=== PATIENT | female | born 1940 | race Caucasian/White ===

== ENCOUNTER 2022-04-23 09:56 | Inpatient (IN) | payer OTHER, SELFPAY ==
[2022-04-20 08:49] VITALS: BMI 25.9
[2022-04-23] VITALS (10 sets, daily range): BP systolic 118–166; BP diastolic 67–90; PULSE 64–110; RESP 15–27; TEMP 35.9–37.4; O2SAT 90–97; BMI 25.9
[2022-04-23] MEDS: LACTATED RINGERS 1,000 ML 42 ML IV ×2 (11:13→12:56)
[2022-04-23 11:26] LABS: COVID19 -Nasal RAPID Negative (Negative)
--- NOTE | 2022-04-23 11:42 | PM.PREOP ---
Pre-operative Note COVID-19 COVID-19 status: Negative Result date/Date tested (Pos, Neg/Pending): 04/22/22 Criteria for continued procedure: Expected advancement of disease process, Possibility delay results in more complex future surgery or treatment, Increased loss of function, Continuing or worsening of significant or severe pain, Deterioration of the patient's condition or overall health and Delay expected to result in less-positive ultimate med/surg outcome Interval Note History & Physical reviewed/Exam performed by Physician: Yes Changes to H&P: No
[2022-04-23] MEDS: CEFAZOLIN 2 GM/100 ML PREMIX 100 ML IV ×2 (12:20→19:40)
--- NOTE | 2022-04-23 12:53 | SUR.OPER ---
Prone on spine table, head in foam head support, padded chest and pelvic supports, gel pad at knees, lower legs supported by pillows; nipples, genitalia and toes free of pressure, arms secured on foam padded arm boards at <90 degrees abduction. Tape over blanket at thigh secured to table. Pt positioned per direction and supervision of Dr Dallas.
[2022-04-23] MEDS: BUPIVACAINE 0.25% (PF) VIAL 30 ML SUBCUT (13:48)
[2022-04-23] MEDS: BUPIVACAINE LIPOSOME 266 MG/20 ML VIAL INJ (13:51)
[2022-04-23] MEDS: EPINEPHrine 1 MG/ML 0.15 MG INJ (13:52)
--- NOTE | 2022-04-23 15:19 | DI.RAD.S_ITS ---
PROCEDURE: XR LUMBAR SPINE 2-3V INDICATIONS: L3-4, L4-5 TLIF TECHNIQUE: 3 views of the lumbar spine were acquired. COMPARISON: None. FINDINGS: Intraoperative fluoroscopic views of pedicular screw and carey fixation of L3, L4, and L5. IMPRESSION: Intraoperative fluoroscopic views. Dictated by: Jl Tinsley M.D. on 04/23/2022 at 15:06 Approved by: Jl Tinsley M.D. on 04/23/2022 at 15:06
--- NOTE | 2022-04-23 15:21 | P.OP_ITS ---
Operative Date/Time/Diagnoses Date of procedure: 04/23/22 Time of procedure: 12:30 Pre-op diagnosis: 1. 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 Lumbar scoliosis Post-op diagnosis: same Procedure & Clinicians Procedure: 1. L3-4, L4-5 Postero-lateral and posterior interbody fusion 2. L3-4, L4-5 interbody cage placement. 3. L3-4, L4-5 decompressive laminectomy with bilateral facetecomies 4. L3-4, L4-5 Posterior segmental instrumentation 5. [place] of bone marrow from iliac crest 6. Utilization of microsurgical technique and operating microscope 7. Utilization of robotic assisted navitation Same procedure as scheduled: Yes Indications: Patient has been having chronic back pain and worsening lumbar radiculopathy. Patient failed multiple conservative management with worsening pain weakness and numbness in her lower extremity. Patient has been having difficulty performing activity of daily living. After discussing risks benefits of treatment options, patient elected proceed with surgery. Surgeon: Lizbeth Dallas Licensed Optician: Krystyna Cerrato Click Yes if Unassisted: No Anesthesia Type: General Operative Notes Closure Type: primary Specimen(s): none sent Prosthetic devices, grafts, tissues, transplants, or devices: Globus CREO MIS screws, Rise cages Applied: catheter Estimated Blood Loss (mL): 100 Blood products transfused: none Procedure in detail: Patient was seen in the preoperative area. Risks and benefits of the surgery was discussed with the patient. Informed consent was obtained from the patient and placed in the chart. Surgical site was marked. Patient was taken to the o perative room. General anesthesia was administered. Prophylactic antibiotic was given to the patient less than 30 min before the incision was made. Patient was placed into a prone position on the Con table. Patient's back was then prepped and draped in the sterile fashion. Time-out was performed at this time. After patient was prepped and draped, patient's PSIS was palpated and marked bilaterally. Small 1 cm incision was made over the PSIS for placement of the reference probes. Two trocar was placed into the PSIS 1 on each side. The reference probe was attached to the trocar of the reference apparatus. At this time the C-arm imaging was used to confirm AP and lateral of L3, L4-L5 vertebrae and merged the C-arm imaging using the MaxCDN robotic navigation system with the CT of the lumbar spine. After successful merging was completed and confirmed, skin marker was used to alberto out the skin incision using the MaxCDN robotic arm. Bilateral incision was made at this time. Pre templated trajectory was used and guided using the MaxCDN robotic navigation system for bilateral L3 L4, L5 pedicle screw placement. This was done by using the robotic arm to guide the high-speed bur to make a cortical entry point. Next a drill was placed also using the robotic arm and guided using the navigation system drilling partially through bilateral L3, L4, L5 pedicles. Next L3, L4, L5 pedicle screws it was pre templated and measured was placed onto the power school boat driver and inserted into the pedicles bilaterally. After all 6 screws were placed C-arm imaging was taken of both AP and lateral to confirm the placement. Excellent placement of the screws were confirmed and a matched precisely with the pre planned screw placement using the navigation system. MARs retractor was inserted using The [employer]own[employer] guidence. Globus MARS retractors was placed inside the incision and docked onto the L3, L4 lamina. Using microsurgical technique and operating microscope, a L3, L4 laminectomy and L3-4, L4-5 facetectomy was performed using a Kerrison rongeur. Patient was found have severe lateral recess and neural foramen stenosis which was fully decompressed after the laminectomy facetectomy. More than 75% of the facets were removed during the process of decompression rendering L3-4, L4-5 level grossly unstable and required a fusion procedure at the same time. The disc space at L3-4, L4-5 was identified, and a total diskectomy was performed at L3- 4, L4-5 level. The endplates were decorticated using a rasp and shaver. The total diskectomy and decortication was performed at L3-4, L4-5 level in order to to accomplish a L3-4, L4-5 fusion. The local bone from the laminectomy and facetectomy was saved for local bone grafting. After the total diskectomy and decortication was completed, Trifecta bone graft material was combined with local bone that was harvested earlier. At this time, a separate skin is incision was made over the iliac crest. A Jamshidi needle was inserted into the iliac crest through a separate skin incision. 5 cc of bone marrow aspiration was obtained through the separate skin incision using a Jamshidi needle from the iliac crest. The bone marrow aspiration was combined with local bone and the Trifecta bone grafting material. The bone grafting material was placed into the L3-4, L4-5 interbody space along with expandable cages. One cage each was inserted into the L3-4 L4-5 interbody space along with bone graft material. The cage was expanded to its maximum height using the torque limiting screwdriver. The disc preparation as well as the cage insertion were also performed under navigation guidance. After the cage was placed, AP and lateral C-arm imaging was taken to confirm placement of the cage and excellent position was confirmed. Globus MARS retractor was inserted and docked onto the L3-4, L4-5 posterolateral gutter on the right side. Using the power drill, posterior-lateral decortication was performed at L3-4, L4-5 level until bleeding cortical bone was identified. The remaining bone grafting material was placed into the L3-4, L4-5 posterior lateral gutter he order to accomplish posterolateral fusion at the L3-4, L4-5 level. At this time the tulips were attached to the L3, L4-L5 pedicle screw shanks. After measuring the length of the rods, they were inserted into the tulips of the pedicle screws and locked in place using locking caps and torque limiting screwdriver bilaterally. Total 6 caps and 2 titanium rods was used in order to complete the posterior instrumentation construct. After all the hardware was placed, and confirmed with AP and lateral C-arm imaging, the wound was then irrigated with sterile normal saline and packed with Ray-Denis gauze for 3 min to accomplish hemostasis. After the gauze was removed the deep fascia was closed with #1 Vicryl suture. The subcutaneous layer was closed with 2-0 Vicryl. The skin was closed with skin dominic. Patient tolerated the procedure well. There were no complications. Neuro monitoring system was used to monitor patient's neurologic status throughout entire procedure. There was no disturbance of the neural monitoring signals throughout the case. Complications: none Post-operative Condition: stable Disposition: PACU Plan for aftercare: Admit to inpatient hospital
[2022-04-23] MEDS: hydrOXYzine 50 MG/ML INJ 25 MG IM (15:33)
[2022-04-23] MEDS: HYDROMORPHONE 2 MG INJ IV (15:39)
[2022-04-23] MEDS: LORazepam 2 MG/ML INJ 0.25 MG IV (15:55)
--- NOTE | 2022-04-23 16:18 | SUR.PHASEI ---
Report called to Latasha
--- NOTE | 2022-04-23 16:43 | SUR.PHASEI ---
Patient transferred to the floor with her CPAP and glasses. Report given to Latasha. PAIGE patent. Back dressing CDI. Ice in place. Mira patent.
[2022-04-23] MEDS: SODIUM CHLORIDE 0.9% 1,000 ML 100 ML IV (16:52)
[2022-04-23] MEDS: HYDROMORPHONE 0.5 MG INJ IV (17:44)
[2022-04-23] MEDS: OXYCODONE IR 5 MG TABLET 10 MG PO ×2 (19:53→23:20)
[2022-04-23] MEDS: TIZANIDINE 4 MG TABLET 2 MG PO (19:54)
[2022-04-23] MEDS: DOCUSATE 100 MG CAPSULE PO (20:59)
[2022-04-23] MEDS: SENNOSIDES 8.6 MG TABLET 17.2 MG PO (20:59)
[2022-04-23] MEDS: DULOXETINE 30 MG CAPSULE PO (20:59)
[2022-04-24] VITALS (7 sets, daily range): BP systolic 90–136; BP diastolic 47–78; PULSE 64–81; RESP 15–18; TEMP 35.8–37.1; O2SAT 91–98
[2022-04-24] MEDS: HYDROMORPHONE 0.5 MG INJ IV (01:57)
[2022-04-24] MEDS: SODIUM CHLORIDE 0.9% 1,000 ML 100 ML IV (01:58)
[2022-04-24] MEDS: CEFAZOLIN 2 GM/100 ML PREMIX 100 ML IV (04:28)
[2022-04-24] MEDS: PANTOPRAZOLE DR 40 MG TABLET PO (05:56)
[2022-04-24] MEDS: OXYCODONE IR 5 MG TABLET 10 MG PO ×4 (05:59→17:52)
[2022-04-24] MEDS: hydrOXYzine pamoate 25 MG CAPSULE PO ×2 (05:59→13:04)
--- NOTE | 2022-04-24 07:32 | PM.PNPO.1 ---
Subjective Subjective Date Patient Seen: 04/24/22 Time Patient Seen: 07:32 Interval history: Back pain is moderate. Denies fever or chills. No nausea or vomiting. Exam Vital Signs (past 8 hours): - 04/24/22 00:43 04/24/22 02:00 Temperature 98.7 F Pulse Rate 78 Respiratory Rate 18 18 Blood Pressure 123/74 136/78 Pulse Oximetry 98 94 Oxygen Flow Rate 0.5 0.5 Oxygen Delivery Method Nasal Cannula,CPAP Oxygen Flow Rate 0.5 Narrative Exam Narrative: 81-year-old female resting comfortably in bed no apparent distress. Motor functions intact bilateral lower extremities. Sensation grossly intact to light touch bilateral lower extremities. Const General: cooperative and comfortable Nutritional Appearance: average body habitus Orientation: alert Resp Effort & Inspection: normal respiratory effort and able to speak in complete sentences Objective Labs 04/24/22 04:55 Labs: Laboratory Results - last 24 hr 04/23/22 04/24/22 10:22 04:55 Hgb 9.0 L Hct 31.0 L SARS-CoV-2 (PCR) Negative [facility] Medical History Arthritis Carotid artery stenosis Cluster headache COVID-19 virus infection (09/2021) Disc degeneration, lumbar Dysphagia Fibromyalgia GERD (gastroesophageal reflux disease) Glaucoma Greater trochanteric bursitis of both hips Ground-level fall History of bronchitis History of esophageal dilatation (11/24/20) History of lupus HTN (hypertension) Legally blind Lumbar stenosis with neurogenic claudication Macular degeneration Memory difficulties Murmur HUSSAIN treated with BiPAP Osteoarthritis Pure hypercholesterolemia Raynaud's phenomenon RLS (restless legs syndrome) Statin intolerance Syncope Systemic lupus erythematosus Thalassemia minor Trigeminal nerve disorder Vision loss of left eye Surgical History Hx of bilateral cataract extraction (~2015) Hx of tonsillectomy (1950) Social History household members: none Smoking Status: Former smoker alcohol intake: current Assessment & Plan Post-op Postoperative Procedures: Procedures Operation Date: 04/23/22 11:45 Actual Procedure Side Surgeon p L3-4, L4-5 TLIF w. posterior instrumentation - Robot Not Applicable Lizbeth Dallas MD Postoperative day: 1 Postoperative status narrative: Stable status post lumbar fusion Postoperative plan: routine post-op care Postoperative plan narrative: Weight-bearing as tolerated, limit bending, twisting, lifting Multimodal pain management Discharge likely home in 1-2 days Quality VTE Deep Vein Thrombosis/Pulmonary Embolism Present on Admission: No
[2022-04-24] MEDS: AMLODIPINE 5 MG TABLET PO ×2 (08:55→20:35)
[2022-04-24] MEDS: hydroCHLOROthiazide 25 MG TABLET 12.5 MG PO (08:56)
[2022-04-24] MEDS: ACETAMINOPHEN 325 MG TABLET 650 MG PO ×2 (08:56→17:52)
[2022-04-24] MEDS: DOCUSATE 100 MG CAPSULE PO ×2 (08:57→20:35)
[2022-04-24] MEDS: TIZANIDINE 4 MG TABLET 2 MG PO ×2 (08:57→17:53)
[2022-04-24] MEDS: DULOXETINE 30 MG CAPSULE PO ×2 (08:57→20:35)
--- NOTE | 2022-04-24 11:04 | PT.IIE ---
Current Diagnoses Spondylolisthesis, lumbar region (04/23/22) Spinal stenosis, lumbar region with neurogenic claudication (04/23/22) Surgery Performed Operation Date: 04/23/22 11:45 Actual Procedures p L3-4, L4-5 TLIF w. posterior instrumentation - Robot(Not Applicable) - Lizbeth Dallas MD Surgical History (Last Reviewed 04/24/22 @ 07:33 by Ranjeet Carpenter PA-C) Hx of bilateral cataract extraction (~2015) Hx of tonsillectomy (1950) Medical History (Last Reviewed 04/24/22 @ 07:33 by Ranjeet Carpenter PA-C) Arthritis Carotid artery stenosis Cluster headache COVID-19 virus infection (09/2021) Disc degeneration, lumbar Dysphagia Fibromyalgia GERD (gastroesophageal reflux disease) Glaucoma Greater trochanteric bursitis of both hips Ground-level fall History of bronchitis History of esophageal dilatation (11/24/20) History of lupus HTN (hypertension) Legally blind Lumbar stenosis with neurogenic claudication Macular degeneration Memory difficulties Murmur HUSSAIN treated with BiPAP Osteoarthritis Pure hypercholesterolemia Raynaud's phenomenon RLS (restless legs syndrome) Statin intolerance Syncope Systemic lupus erythematosus Thalassemia minor Trigeminal nerve disorder Vision loss of left eye Physical Therapy Inpatient Evaluation/Re-Eval M1 PT/OT-IP Prior Functional Status Start: 04/24/22 08:58 Freq: NEEDED Status: Active Protocol: Document 04/24/22 10:26 AMB (Rec: 04/24/22 11:03 AMB [id number]) Medical Review Prior Functional Status Medical History Reviewed Yes Mobility and Gait Pt states she is legally blind , has been having a lot of pain over the past few months and that has led to a 20# weight loss since February as she has been having a lot more difficulty. Was using a 4WW. 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 M2 PT-IP Current Condition Start: 04/24/22 08:58 Freq: NEEDED Status: Active Protocol: Document 04/24/22 10:26 AMB (Rec: 04/24/22 11:03 AMB [id number]) Physical Therapy Current Condition Current Condition Evaluation Date 04/24/22 Treatment Diagnosis L3-4,4-5 fusion. Pain, difficulty walking Onset Date 04/23/22 M3 PT-IP Subjective Start: 04/24/22 08:58 Freq: NEEDED Status: Active Protocol: Document 04/24/22 10:26 AMB (Rec: 04/24/22 11:03 AMB [id number]) Subjective Physical Therapy Visit Type Type Initial Evaluation Visit Start Time 09:45 Visit Stop Time 10:15 Total Visit Minutes 30 Physical Therapy Visit Comments Patient Comments Pt is having leg spasms 7/10 Therapy Pain Assessment Pain When Pain Assessed At Rest Location Lower Back Intensity 7 Scale Used Numeric (0 - 10) Description Cramping,Shooting Pain Behaviors Calling Out,Facial Grimacing, Wincing Pain Management Techniques Re-positioning,Timing of Activity with Medications M4 PT-IP Mobility and Gait Start: 04/24/22 08:58 Freq: NEEDED Status: Active Protocol: Document 04/24/22 10:26 AMB (Rec: 04/24/22 11:03 AMB [id number]) PT-Bed Mobility Assessment Rolling Type of Rolling Log Rolling,Roll to Left Level of Assist Contact Guard Assistance Supine to Sit Supine to Sit Minimal Assistance,1 Person Assistance,Head of Bed Elevated,Bedrails Sit to Supine Sit to Supine Minimal Assistance,1 Person Assistance,Head of Bed Elevated,Bedrails Scooting Scooting to Edge of Bed Minimal Assistance PT-Transfer Assessment Sit to and From Stand Sit to and from Stand Contact Guard Assistance Equipment Transfer Assistive Device Bed Rail,Gait Belt,Front Wheeled Walker Transfers Transfer Destination Bed,Bedside Commode Transfer Technique Stand Step Pivot Transfer Ability Level of Assist Contact Guard Assistance Comments Mobility Comments Pt with significant pain with transfers. Pt not on O2 when coming into room. At rest SpO2 varied between 90 and 96 on room air. Pt does have Raynauds which does make accurate SpO2 reading more challenging. Educated in bend lift twist precautions. Pt's pain makes transferring challenging but was able to maintain precautions. Gait Assessment Gait Gait Assistance Required: Minimum Assistance Distance (Feet) 20 Assistive Devices Assistive Device Front Wheeled Walker Gait Deviations General Gait Pattern Antalgic,Decreased Stride Length,Decreased Feet Clearance,Flexed Trunk Factors Limiting Gait Function Factors Limiting Gait Function Decreased Sensation,Decreased Strength,Pain Comments Gait Comments Guerita ambulated with the FWW with CGA, but then needed Deuce when having leg spasms. Ambulated from bed to commode that was in the bathroom. Pt with pain when moving from stand to sit, good safety with reaching for arm rests. Reiterated ok to flex hips but not to flex spine. Ambulated back to bed, and SpO2 decreased further into the 80' s. Pt with a difficult time breathing well due to pain, and had a difficult time getting SpO2 back into the 90s so put nasal cannula on at 2L at notified RN. PT-Balance Assessment Sitting Balance and Reactions Static Sitting Balance Ability Good Dynamic Sitting Balance Ability Fair Standing Balance and Reactions Static Standing Balance Ability Fair Dynamic Standing Balance Ability Poor M5 PT-IP Objective Assessments Start: 04/24/22 08:58 Freq: NEEDED Status: Active Protocol: Document 04/24/22 10:26 AMB (Rec: 04/24/22 11:03 AMB [id number]) Orientation Orientation/Cognition Level of Alertness Alert Strength Lower Extremity Strength Assessment Left Impaired Hip 4 Knee 4 Ankle 4 Sensation Assessment Sensation Light Touch Intact M6 PT-IP Treatment Start: 04/24/22 08:58 Freq: NEEDED Status: Active Protocol: Document 04/24/22 10:26 AMB (Rec: 04/24/22 11:03 AMB [id number]) Physical Therapy Treatment Exercises Exercises Ankle Pumps Education Education Provided Precautions,Safety M7 PT-IP Assessment and Plan Start: 04/24/22 08:58 Freq: NEEDED Status: Active Protocol: Document 04/24/22 10:26 AMB (Rec: 04/24/22 11:03 AMB [id number]) PT Summary Assessment and Plan Potential Rehabilitation Potential Good Status of Condition at Evaluation Evolving Summary Impairments Pain,Strength,Balance,Bed Mobility,Transfers,Gait, Activity Tolerance Assessment Summary Guerita presents s/p L34, L45 fusion and is continuing to have radicular pain that makes bed mobility, transfers and gait challenging. She is legally blind and lives alone (she does pay a caregiver to live with her). She is interested in pursuing SNF d/c and that would certainly be appropriate given her current pain levels and SpO2 declining into the 80s with any amount of mobility training. She needed Deuce for most transfers and gait. She would benefit from continued physical therapy until medically stable to discharge to SNF. Goals Bed Mobility Goal Standby Assistance Transfer Goal Standby Assistance Gait Goal Contact Guard Assistance Gait Distance 100 Frequency of Treatment Frequency Of Treatment Twice a Day Treatment Plan Physical Therapy Treatment Plan Bed Mobility Training,Transfer Training,Gait Training, Therapeutic Exercise, Neuromuscular Re-ed Other Recommendations and Next Treatment Bed mobility, gait, bed Focus exercise... check O2 stats Precautions Lumbar Precautions Log Roll,No Twisting,Limit Bending,Lifting Restriction of 10 lbs,Gait Belt above Incisional Area Recommendations To Nursing Amount of Assist Needed 1 Person Assist Discharge Recommendations PT Discharge Recommendations SNF Rehab Transportation Needs at Discharge Wheelchair/Cabulance
--- NOTE | 2022-04-24 11:24 | OT.IPNOTE ---
Pt is too much pain and noted O2 reading were down, nursing aware, but pt has Raynaud's which may also affect her O2 readings per nursing. To check on the later.
[2022-04-24] MEDS: GABAPENTIN 300 MG CAPSULE PO ×3 (13:04→20:36)
--- NOTE | 2022-04-24 14:45 | PT-IP ANOTE ---
Pt refused x2 due to being tired and believing her O2 levels are too low to mobilize. Nursing and respiratory explained to the pt her O2 levels are ok for mobilization but still refused.
--- NOTE | 2022-04-24 15:01 | OT.IPNOTE ---
Pt not wanting to get up at this time due to just wanting to rest and concerned about her low O2 reading. RT came up to see her and not concerned as pt has Raynaud's and O2 reading is not accurate per RT and that pt has no symptoms except complaining of a headache. To check on the pt tomorrow for OT eval.
[2022-04-24] MEDS: SENNOSIDES 8.6 MG TABLET 17.2 MG PO (20:36)
[2022-04-24] MEDS: SODIUM CHLORIDE 0.9% FLUSH 10 ML IV (20:38)
[2022-04-25] VITALS (8 sets, daily range): BP systolic 58–125; BP diastolic 28–70; PULSE 61–85; RESP 16–18; TEMP 35.9–36.7; O2SAT 94–97
[2022-04-25] MEDS: OXYCODONE IR 5 MG TABLET 10 MG PO ×6 (01:15→23:26)
[2022-04-25] MEDS: hydrOXYzine pamoate 25 MG CAPSULE PO ×3 (01:15→13:52)
--- NOTE | 2022-04-25 03:13 | PC.NURSE ---
Addendum entered by Johanna Kaur R.N. 04/25/22 07:04: Catheter d'cd per PA's order; tolerated well. Patient instructed on sx/prevention of UTI Addendum entered by Johanna Kaur R.N. 04/25/22 05:11: Late entry: when given hs medications she began to cough after taking first pill with some water. Rest of meds given whole in applesauce. Patient states she has chronic issues taking pills and needs a carrier. Original Note: Patient is alert and oriented. Legally blind and reports she has impaired central vision on left eye and impaired peripheral vision on right due to macular degeneration. Breath sounds CTA but is on oxygen at 2L/min per NC with sat of 91-92%; RT contacted to assist patient with home bipap. HRR with murmur. Initial BP only 93/47 but on recheck is 123/70. Denies nausea. BT present and is passing flatus. Indwelling catheter is patent; urine is clear yellow. Is able to turn herself with staff assist to place pillows. Dressing to back intact with shadow drainage on lower left dressing. Complained of pain in back radiating down both legs and was medicated with oxycodone + vistaril and ice applied and is currently asleep. Gait not assessed. Wearing bilateral calf SCD's. Fall risk score is moderate but calls appropriately for assist and does not attempt to get out of bed on her own so alarm is not activated at this time.
[2022-04-25] MEDS: PANTOPRAZOLE DR 40 MG TABLET PO (05:53)
[2022-04-25] MEDS: MAGNESIUM HYDROXIDE 30 ML UDC PO (06:48)
--- NOTE | 2022-04-25 06:51 | PM.PNPO.1 ---
Subjective Subjective Date Patient Seen: 04/25/22 Time Patient Seen: 06:52 Interval history: Lying in bed, states pain is better now but was recently 11 out of 10, starting in her back and radiating down her legs. She did not work w/ PT yesterday afternoon. Meyers catheter still in place. She is legally blind and lives alone and needs SNF rehab. Exam Vital Signs (past 8 hours): - 04/25/22 01:29 04/25/22 01:00 04/25/22 04:21 Temperature 97.1 F L 97.8 F Pulse Rate 84 78 Respiratory Rate 16 16 Blood Pressure 123/70 125/62 Pulse Oximetry 94 97 Oxygen Delivery Method Nasal Cannula BiPAP Oxygen Flow Rate 2 0 Oxygen Delivery Method Nasal Cannula,BiPAP Oxygen Flow Rate 0 Narrative Exam Narrative: 5/5 strength in hip flexors, quadriceps, hamstrings, DF, PF, EHL bilaterally. Sensation to light touch intact in BLE. Calves soft, compressible, nontender and without palpable cords or masses. Dressings placed intraoperatively are CDI. Meyers w/ clear yellow urine. Objective Labs 04/24/22 04:55 PFSH Medical History (Updated 04/25/22 @ 06:57 by Rosa Serrano PA-C) Arthritis Carotid artery stenosis Cluster headache COVID-19 virus infection (09/2021) Disc degeneration, lumbar Dysphagia Fibromyalgia GERD (gastroesophageal reflux disease) Glaucoma Greater trochanteric bursitis of both hips Ground-level fall History of bronchitis History of esophageal dilatation (11/24/20) History of lupus HTN (hypertension) Legally blind Lumbar stenosis with neurogenic claudication Macular degeneration Memory difficulties Murmur HUSSAIN treated with BiPAP Osteoarthritis Pure hypercholesterolemia Raynaud's phenomenon RLS (restless legs syndrome) Statin intolerance Syncope Systemic lupus erythematosus Thalassemia minor Trigeminal nerve disorder Vision loss of left eye Surgical History (Updated 04/25/22 @ 06:57 by Rosa Serrano PA-C) Hx of bilateral cataract extraction (~2015) Hx of tonsillectomy (1950) Social History household members: none Smoking Status: Former smoker alcohol intake: current Assessment & Plan Post-op Assessment and plan (1) S/P lumbar fusion: Assessment and Plan narrative: Will start dexamethasone 4mg to help w/ post-op leg pain. Will discharge w/ medrol azra taper. Continue oxycodone and vistaril for pain management. (2) Acute on chronic blood loss anemia: Assessment and Plan narrative: Acute anemia d/t expected surgical blood loss. (3) Legally blind: Assessment and Plan narrative: Consult care management for discharge planning. Still needs more work w/ PT, possible discharge to SNF tomorrow if there is a facility that can accept her and she makes adequate progress w/ PT. Postoperative Procedures: Procedures Operation Date: 04/23/22 11:45 Actual Procedure Side Surgeon p L3-4, L4-5 TLIF w. posterior instrumentation - Robot Not Applicable Lizbeth Dallas MD Postoperative day: 2 Quality VTE Deep Vein Thrombosis/Pulmonary Embolism Present on Admission: No
--- NOTE | 2022-04-25 08:30 | PT.IPTN ---
Current Diagnoses Acute posthemorrhagic anemia (04/23/22) [place] blindness, as defined in [place] (04/23/22) Spondylolisthesis, lumbar region (04/23/22) Spinal stenosis, lumbar region with neurogenic claudication (04/23/22) Arthrodesis status (04/23/22) Surgery Performed Operation Date: 04/23/22 11:45 Actual Procedures p L3-4, L4-5 TLIF w. posterior instrumentation - Robot(Not Applicable) - Lizbeth Dallas MD Physical Therapy Treatment Note M2 PT-IP Current Condition Start: 04/24/22 08:58 Freq: NEEDED Status: Active Protocol: Document 04/24/22 10:26 AMB (Rec: 04/24/22 11:03 AMB [id number]) Physical Therapy Current Condition Current Condition Evaluation Date 04/24/22 Treatment Diagnosis L3-4,4-5 fusion. Pain, difficulty walking Onset Date 04/23/22 M3 PT-IP Subjective Start: 04/24/22 08:58 Freq: NEEDED Status: Active Protocol: Document 04/25/22 09:06 TS (Rec: 04/25/22 09:49 TS [id number]) Subjective Physical Therapy Visit Type Type Treatment Note Visit Start Time 08:30 Visit Stop Time 09:00 Total Visit Minutes 30 Notes Spo2:90 RA BP: 97/56 Number of PRINCIPAL CONSULTING ENGINEER Visits 1 Physical Therapy Visit Comments Patient Comments Pt is agreeable to PT session, has complaints of pain in her legs and is wanting more pain medication. M4 PT-IP Mobility and Gait Start: 04/24/22 08:58 Freq: NEEDED Status: Active Protocol: Document 04/25/22 09:06 TS (Rec: 04/25/22 09:49 TS [id number]) PT-Bed Mobility Assessment Rolling Type of Rolling Log Rolling,Roll to Left Level of Assist Contact Guard Assistance Supine to Sit Supine to Sit Minimal Assistance,1 Person Assistance,Head of Bed Elevated,Bedrails Scooting Scooting to Edge of Bed Minimal Assistance PT-Transfer Assessment Sit to and From Stand Sit to and from Stand Minimal Assistance Equipment Transfer Assistive Device Bed Rail,Gait Belt,Front Wheeled Walker Transfers Transfer Destination Chair Transfer Technique Stand Step Pivot Transfer Ability Level of Assist Contact Guard Assistance Comments Mobility Comments Pt found resting in bed and agreeable to PT session. O2 line found disconnected in room (Spo2 90% on RA), RN asked to have line reconnected with 2L. Bp:97/56 on LUE flat in bed. She recalled 3/3 spinal precautions. She performed log roll with HOB 45D, CGA and UE support on handrail, pt complaining of pain/discomfort in legs. She performed supine to sit with Deuce with trunk and scooting to EOB. She performed sit to stand x1 with Deuce and VC for handplacement on bed and FWW. She performed a stand pivot transfer, CGA w/FWW and required verbal cues for navigating to bed side chair. She performed stand to sit with good eccentric control and maintained precautions throughout. PT-Balance Assessment Sitting Balance and Reactions Static Sitting Balance Ability Good Dynamic Sitting Balance Ability Fair Standing Balance and Reactions Static Standing Balance Ability Fair Dynamic Standing Balance Ability Poor M5 PT-IP Objective Assessments Start: 04/24/22 08:58 Freq: NEEDED Status: Active Protocol: Document 04/24/22 10:26 AMB (Rec: 04/24/22 11:03 AMB [id number]) Orientation Orientation/Cognition Level of Alertness Alert Strength Lower Extremity Strength Assessment Left Impaired Hip 4 Knee 4 Ankle 4 Sensation Assessment Sensation Light Touch Intact M6 PT-IP Treatment Start: 04/24/22 08:58 Freq: NEEDED Status: Active Protocol: Document 04/24/22 10:26 AMB (Rec: 04/24/22 11:03 AMB [id number]) Physical Therapy Treatment Exercises Exercises Ankle Pumps Education Education Provided Precautions,Safety M7 PT-IP Assessment and Plan Start: 04/24/22 08:58 Freq: NEEDED Status: Active Protocol: Document 04/25/22 09:06 TS (Rec: 04/25/22 09:49 TS [id number]) PT Summary Assessment and Plan Potential Rehabilitation Potential Good Status of Condition at Evaluation Evolving Summary Impairments Pain,Strength,Balance,Bed Mobility,Transfers,Gait, Activity Tolerance Assessment Summary Pt continues to have pain radiating in her LE's limiting her mobility. She performed log roll CGA with UE support with handrail, supine to sit Deuce for trunk, scooting to EOB Deuce, sit to stand x1 Deuce and stand pivot transfer CGA. Continuing to recommend SNF to improve bed mobility, transfer and gait. She will not have 24/7 support at home due to her previous caregiver will not be staying with her anymore. Goals Bed Mobility Goal Standby Assistance Transfer Goal Standby Assistance Gait Goal Contact Guard Assistance Gait Distance 100 Frequency of Treatment Frequency Of Treatment Twice a Day Treatment Plan Physical Therapy Treatment Plan Bed Mobility Training,Transfer Training,Gait Training, Therapeutic Exercise, Neuromuscular Re-ed Other Recommendations and Next Treatment Bed mobility, transfers, gait, Focus bed exercise, check O2/BP stats Precautions Lumbar Precautions Log Roll,No Twisting,Limit Bending,Lifting Restriction of 10 lbs,Gait Belt above Incisional Area Recommendations To Nursing Amount of Assist Needed 1 Person Assist Discharge Recommendations PT Discharge Recommendations SNF Rehab Other Discharge Recommendations No more 10/09 assist at home. Transportation Needs at Discharge Wheelchair/Cabulance
[2022-04-25] MEDS: DULOXETINE 30 MG CAPSULE PO ×2 (09:38→21:48)
[2022-04-25] MEDS: ACETAMINOPHEN 325 MG TABLET 650 MG PO ×2 (09:38→17:16)
[2022-04-25] MEDS: GABAPENTIN 300 MG CAPSULE PO ×3 (09:38→21:48)
[2022-04-25] MEDS: TIZANIDINE 4 MG TABLET 2 MG PO ×2 (09:39→17:16)
[2022-04-25] MEDS: DOCUSATE 100 MG CAPSULE PO ×2 (09:40→21:48)
[2022-04-25] MEDS: SODIUM CHLORIDE 0.9% FLUSH 10 ML IV (09:40)
[2022-04-25] MEDS: DEXAMETHASONE 4 MG/ML VIAL IV ×3 (10:44→23:27)
[2022-04-25] MEDS: LACTATED RINGERS 500 ML 1000 ML IV (10:45)
[2022-04-25] MEDS: LACTATED RINGERS 1,000 ML 125 ML IV ×2 (11:15→23:14)
--- NOTE | 2022-04-25 12:35 | OT.IP.EVAL ---
Current Diagnoses Acute posthemorrhagic anemia (04/23/22) [place], as defined in [place] (04/23/22) Spondylolisthesis, lumbar region (04/23/22) Spinal stenosis, lumbar region with neurogenic claudication (04/23/22) Arthrodesis status (04/23/22) Surgery Performed Operation Date: 04/23/22 11:45 Actual Procedures p L3-4, L4-5 TLIF w. posterior instrumentation - Robot(Not Applicable) - Lizbeth Dallas MD Past Medical History (Last Updated 04/25/22 @ 06:57 by JOSEPH BurgosC) Arthritis Carotid artery stenosis Cluster headache COVID-19 virus infection (09/2021) Disc degeneration, lumbar Dysphagia Fibromyalgia GERD (gastroesophageal reflux disease) Glaucoma Greater trochanteric bursitis of both hips Ground-level fall History of bronchitis History of esophageal dilatation (11/24/20) History of lupus HTN (hypertension) Legally blind Lumbar stenosis with neurogenic claudication Macular degeneration Memory difficulties Murmur HUSSAIN treated with BiPAP Osteoarthritis Pure hypercholesterolemia Raynaud's phenomenon RLS (restless legs syndrome) Statin intolerance Syncope Systemic lupus erythematosus Thalassemia minor Trigeminal nerve disorder Vision loss of left eye Surgical History (Last Reviewed 04/24/22 @ 07:33 by Ranjeet Carpenter PA-C) Hx of bilateral cataract extraction (~2015) Hx of tonsillectomy (1950) Occupational Therapy Inpatient Evaluation/Re-Eval M1 PT/OT-IP Prior Functional Status Start: 04/25/22 12:38 Freq: NEEDED Status: Active Protocol: Document 04/25/22 12:08 [facility] (Rec: 04/25/22 13:05 [facility] [id number]) Medical Review Prior Functional Status Medical History Reviewed Yes Mobility and Gait Pt states she is legally blind , has been having a lot of pain over the past few months and that has led to a 20# weight loss since February as she has been having a lot more difficulty. Was using a 4WW. Activities of Daily Living and IADL's Pain/difficulty limiting especially for her compression stockings. Social History Household Members none Living Arrangements Mobile home Number of Floors (Floors) One Floor Home Environment Standard Height Toilet Home Equipment Four Wheel Walker Employment Status Retired Additional Social History Comment Retired nurse. M2 OT-IP Current Condition Start: 04/25/22 12:38 Freq: Status: Active Protocol: Document 04/25/22 12:08 [facility] (Rec: 04/25/22 13:05 [facility] [id number]) Occupational Therapy Current Condition Current Condition Evaluation Date 04/25/22 Treatment Diagnosis S/p L3-4, L4-5 TLIF Diagnosis Onset Date 04/23/22 M3 OT- IP Subjective and Pain Start: 04/25/22 12:38 Freq: Status: Active Protocol: Document 04/25/22 12:08 [facility] (Rec: 04/25/22 13:05 [facility] [id number]) OT- Subjective Occupational Therapy Visit Type Type Initial Evaluation Visit Start Time 12:08 Visit Stop Time 12:35 Total Visit Minutes 27 Occupational Therapy Visit Comments Patient Comments Pt agreed to get up as having to use the BSC. Patient/Caregiver Goals To go to skilled rehab. OT Pain Assessment Pain When Pain Assessed During Mobility Pain Present Pain Present Pain Reported Location Lower Back Intensity 8 Scale Used Numeric (0 - 10) M4 OT- IP ADL's Start: 04/25/22 12:38 Freq: Status: Active Protocol: Document 04/25/22 12:08 [facility] (Rec: 04/25/22 13:05 [facility] [id number]) OT [id number] Comments OT Self-Feeding Comments Not at meal time. OT ADL-Grooming Comments OT Grooming Comments Pt not wanting to perform at this time. OT ADL-Oral Care Comments Oral Care Comments Not performed. OT ADL-Dressing General Eval Lower Body Dressing Ability Maximum Assistance Comments OT Dressing Comments Assist to help aylin brief over her feet and up over her hips . OT ADL-Toileting General Evaluation Toileting Ability Maximum Assistance Areas Needing Assistance Manage Clothing Devices Toileting Assistive Devices Commode Comments OT Toileting Comments Pt needing assist for brief management needs and pt able to reach while standing with BOSSMAN with FWW to stand to be able to reach behind her to wipe appropriately. OT ADL-Bathing Comments OT Bathing Comments Due to low BP , best to do sponge bathing. M5 OT- IP IADL's Start: 04/25/22 12:38 Freq: Status: Active Protocol: Document 04/25/22 12:08 [facility] (Rec: 04/25/22 13:05 [facility] [id number]) OT-Instrumental Activities of Daily Living Deficits IADL Deficits Identified Deficits Home Safety Awareness Awareness of Need for Assistance at Home Good Awareness M6 OT- IP Functional Cognition Start: 04/25/22 12:38 Freq: Status: Active Protocol: Document 04/25/22 12:08 [facility] (Rec: 04/25/22 13:05 [facility] [id number]) Cognitive Factors Limiting Selfcare Function Cognitive Ability Level of Alertness Alert Patient Orientation Name,Age,Birthday,Month,Date, Year,Day of Week,Place, Situation Attention Span Ability Capable of Focused Attention, Capable of Sustained Attention Ability to Follow Commands Able to Follow One Step Commands Safety Awareness Decreased Ability to Apply Precautions Cognitive Comments Cognitive Assessment Comments Pt needing reminders for not twisting during bed mobility needs. In addition pt needing cues to slow down. OT- Vision and Hearing OT- Vision Assessment Vision Assessment Comments Pt states is legally blind. M7 OT- IP Mobility and Balance Start: 04/25/22 12:38 Freq: Status: Active Protocol: Document 04/25/22 12:08 [facility] (Rec: 04/25/22 13:05 [facility] [id number]) OT- Bed Mobility Assessment Supine to Sit Supine to Sit Assist Moderate Assistance Sit to Supine Sit to Supine Assist Moderate Assistance OT-Transfer Assessment Sit to and From Stand Sit to and from Stand Minimal Assistance,Moderate Assistance Transfers Transfer Ability Minimal Assistance,Moderate Assistance Technique Transfer Destination Bed,Bedside Commode Transfer Technique Stand Step Pivot Devices Transfer Assistive Devices Gait Belt,Front Wheeled Walker Comments Mobility Comments BOSSMAN to MODA to stand to FWW and assist to help with steadying a guide the FWW. Pt needing MODA for bed mobility to help get her trunk upright and assist to help get her legs back into bed. BP sitting 88/52, after BSC 81/50 , 78/47, and back into 85/48. OT- Balance Assessment Sitting Balance and Reactions Static Sitting Balance Ability Good Dynamic Sitting Balance Ability Fair Standing Balance and Reactions Static Standing Balance Ability Fair M9 OT- IP Assessment and Plan Start: 04/25/22 12:38 Freq: Status: Active Protocol: Document 04/25/22 12:08 [facility] (Rec: 04/25/22 13:05 [facility] [id number]) OT Summary Assessment and Plan Potential Rehabilitation Potential Good Analytic Complexity at Evaluation Low Summary OT Impairments Pain,Balance,Functional Mobility,Grooming,Dressing, Toileting,Bathing,Toilet Transfers,Shower Transfers, Activity Tolerance Progress Towards Goals Slow Progress due to Pain,Slow Progress due to Medical Issues,Slow Progress due to Activity Tolerance Assessment Summary Pt low complexity and main barriers are pain , low bp, needing MODA for bed mobility and to come to stand from lower surfaces. Pt will benefit from skilled rehab prior to going home. Goals Grooming Goal Independent Dressing Goal Independent Toileting Goal Independent Bathing Goal Standby Assistance Toilet Transfer Goal Independent Shower Transfer Goal Independent Days to Meet Goals 15 Frequency of Treatment Frequency Of Treatment Once a Day Treatment Plan OT Treatment Plan ADL Training,Functional Mobility,Patient/Family Education,Discharge Planning Other Treatment Recommendations and Next Stand at sink for ADL needs. Treatment Focus Discharge Recommendations OT Discharge Recommendations SNF Rehab Transportation Needs at Discharge Wheelchair/Cabulance
--- NOTE | 2022-04-25 14:00 | PT.IPTN ---
Current Diagnoses Acute posthemorrhagic anemia (04/23/22) [place] blindness, as defined in [place] (04/23/22) Spondylolisthesis, lumbar region (04/23/22) Spinal stenosis, lumbar region with neurogenic claudication (04/23/22) Arthrodesis status (04/23/22) Surgery Performed Operation Date: 04/23/22 11:45 Actual Procedures p L3-4, L4-5 TLIF w. posterior instrumentation - Robot(Not Applicable) - Lizbeth Dallas MD Physical Therapy Treatment Note M2 PT-IP Current Condition Start: 04/24/22 08:58 Freq: NEEDED Status: Active Protocol: Document 04/24/22 10:26 AMB (Rec: 04/24/22 11:03 AMB [id number]) Physical Therapy Current Condition Current Condition Evaluation Date 04/24/22 Treatment Diagnosis L3-4,4-5 fusion. Pain, difficulty walking Onset Date 04/23/22 M3 PT-IP Subjective Start: 04/24/22 08:58 Freq: NEEDED Status: Active Protocol: Document 04/25/22 14:39 TS (Rec: 04/25/22 15:02 TS [id number]) Subjective Physical Therapy Visit Type Type Treatment Note Visit Start Time 14:00 Visit Stop Time 14:29 Total Visit Minutes 29 Notes BP sittin/62 Number of COSTUMER ASSISTANT Visits 2 Physical Therapy Visit Comments Patient Comments Pt is agreeable to PT session. M4 PT-IP Mobility and Gait Start: 04/24/22 08:58 Freq: NEEDED Status: Active Protocol: Document 04/25/22 14:39 TS (Rec: 04/25/22 15:02 TS [id number]) PT-Bed Mobility Assessment Rolling Type of Rolling Log Rolling,Roll to Left Level of Assist Standby Assistance Supine to Sit Supine to Sit Standby Assistance,Head of Bed Elevated,Bedrails Sit to Supine Sit to Supine Standby Assistance Scooting Scooting to Edge of Bed Standby Assistance Scooting Up and Down in Bed Minimal Assistance PT-Transfer Assessment Sit to and From Stand Sit to and from Stand Contact Guard Assistance,1 Person Assistance Equipment Transfer Assistive Device Bed Rail,Gait Belt,Front Wheeled Walker Comments Mobility Comments Pt found resting in bed with friend in room. Pt reported she had used the bathroom and brushed her teeth with DIABETOLOGIST prior to therapist arriving. Pt progressed to SBA for logroll to left. Pt performed supine to sit SBA with HOB 45D . She performed sit to stand CGA x1 with FWW. She performedd marches x4 each LE and heel lifts x4 in FWW CGA. She ambulated 2x15' w/FWW Deuce for buckling of LE's due to reported continuing spasms in her legs. Pt could not ambulate further and requested to go back to bed due to fatigue and spasms. She performed sit to supine SBA and required Deuce for scooting straight in bed. Gait Assessment Gait Gait Assistance Required: Minimum Assistance Distance (Feet) 30 Assistive Devices Assistive Device Front Wheeled Walker Gait Deviations General Gait Pattern Antalgic,Decreased Stride Length,Decreased Feet Clearance,Flexed Trunk Factors Limiting Gait Function Factors Limiting Gait Function Decreased Activity Tolerance, Decreased Sensation,Decreased Strength,Pain Comments Gait Comments See mobility comments. PT-Balance Assessment Sitting Balance and Reactions Static Sitting Balance Ability Good Dynamic Sitting Balance Ability Fair Standing Balance and Reactions Static Standing Balance Ability Fair Dynamic Standing Balance Ability Poor M5 PT-IP Objective Assessments Start: 04/24/22 08:58 Freq: NEEDED Status: Active Protocol: Document 04/24/22 10:26 AMB (Rec: 04/24/22 11:03 AMB [id number]) Orientation Orientation/Cognition Level of Alertness Alert Strength Lower Extremity Strength Assessment Left Impaired Hip 4 Knee 4 Ankle 4 Sensation Assessment Sensation Light Touch Intact M6 PT-IP Treatment Start: 04/24/22 08:58 Freq: NEEDED Status: Active Protocol: Document 04/24/22 10:26 AMB (Rec: 04/24/22 11:03 AMB [id number]) Physical Therapy Treatment Exercises Exercises Ankle Pumps Education Education Provided Precautions,Safety M7 PT-IP Assessment and Plan Start: 04/24/22 08:58 Freq: NEEDED Status: Active Protocol: Document 04/25/22 14:39 TS (Rec: 04/25/22 15:02 TS [id number]) PT Summary Assessment and Plan Potential Rehabilitation Potential Good Status of Condition at Evaluation Evolving Summary Impairments Pain,Strength,Balance,Bed Mobility,Transfers,Gait, Activity Tolerance Assessment Summary Guerita continues to have spasms and fatigue limiting her ability to ambulate with her FWW for further distances. She progressed in her bed mobility to SBA but requires Deuce for scooting in bed and during ambulation due to some buckling of her LE's. Continuing to recommend SNF to improve her functional mobility and activity tolerance. Goals Bed Mobility Goal Standby Assistance Transfer Goal Standby Assistance Gait Goal Contact Guard Assistance Gait Distance 100 Frequency of Treatment Frequency Of Treatment Twice a Day Treatment Plan Physical Therapy Treatment Plan Bed Mobility Training,Transfer Training,Gait Training, Therapeutic Exercise, Neuromuscular Re-ed Other Recommendations and Next Treatment Bed mobility, transfers, gait, Focus bed exercise, check O2/BP stats Precautions Lumbar Precautions Log Roll,No Twisting,Limit Bending,Lifting Restriction of 10 lbs,Gait Belt above Incisional Area Recommendations To Nursing Amount of Assist Needed 1 Person Assist Discharge Recommendations PT Discharge Recommendations SNF Rehab Other Discharge Recommendations No more 10/09 assist at home. Transportation Needs at Discharge Wheelchair/Cabulance
--- NOTE | 2022-04-25 17:19 | CM.DANOTE ---
DCP Assessment: Patient is an 81 yr old female who was admitted for a TLIF preformed by DR. WRIGHT. Patient is blind and lives at home in [place] independently at baseline however is currently in need of SNF per PT recommendations. Patient give MCR choice list on IPAD and chose [facility], [facility] and [facility] as her primary choices for SNF CM Sent SNF referral to each facility and once accepting facility found will need PASRR completed. Patient will also need a [employer] Auth once accepting facility found. Insurance: [employer] MCR and selfpay PCP: Mary Roberts Plan:DC to SNF - currently looking for accepting facility - [facility], [facility] and [facility] all reviewing CM team will follow up in AM to see what facility can accept the patient for admission. Latrice Bond RNsplit leather mosser Discharge Planning/Care Management CM Discharge Assessment Start: 04/25/22 17:04 Freq: Status: Active Protocol: Document 04/25/22 17:04 HS (Rec: 04/25/22 17:08 [id number]) Discharge Planning Assessment Assigned Dye Automation Operator Latrice Bond RNsplit leather mosser Advance Directives? Yes Advance Directives on File No History Provided By Patient,Medical Record Prior Living Arrangements Mobile home Household Members none Type of transporation used prior to Relies on Others admit Is patient alert and oriented? Yes Patient/Family Preference Penitentiary Facility Comment patient agreed to needing SNF placement 1st choice [facility], [facility] and third choice is [facility]- which are all [employer] approved facilities Barriers to Discharge Yes Comment SNF Placement Discharge Plan Penitentiary Facility Transportation Arrangement facility to provide transportation Referrals Initiated Penitentiary If patient plan is home with home health No : Has signed face to face form been completed? If patient plan is SNF: Has PASSR been No: will be completed closer completed? to DC Medicare Choice List Provided Yes Medicare choice list reviewed on patient,family electronic tablet with SNF/HH Preference [facility], 2 [facility], 3. [facility] Has Agency SNF been contacted Yes Whiteboard Updated in Patient Room with Yes name and ext. 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 Patient Information Reviewed Via Phone Assessment Assessment Completed With Patient,Caregiver Primary Care Provider Mary Roberts Seen Specialist in Last 12 Months Yes Specialist Seen Taxonomy Teacher,Opthamologist/ Import/Export Administrator,Orthopedist Comment PCP visit 02/20/22 scanned Primary Language [place] Citizen Wool Spotter Required No Height 157.48 cm Weight 64.41 kg Body Mass Index (BMI) 25.9 Hearing Ability Normal Visual Assist Glasses Dentition Type Teeth, Missing Barriers to Learning Visual Other Aids Yes: guard manager, front tooth flipper Hx Anesthesia Reactions No Hx Family Anesthesia Reaction No Hx Malignant Hyperthermia No Hx Blood Transfusions No Anesthesia Review Requested No Taker Out No alcohol intake current alcohol intake frequency a few times a week Smoking Status Former smoker how long ago did patient quit smoking Quit age 28 Substance Use Type does not use Pain Present Pain Reported Musculoskeletal Symptoms Abnormal Gait,Back Pain, Difficulty Walking,Joint Pain, Muscle Weakness,Numbness, Radiating Pain into Limb, Tingling History of Falling (Recent or History of Yes ) Patient is completely paralyzed or No completely immobile Prosthesis or Orthotic Device Cane,Front Wheel Walker Mental Status Oriented to own ability Is patient on oxygen? No Does patient have CLAROS/SOB No Hx Sleep Apnea Yes: BiPAP CPAP/BIPAP use prescribed and used routinely Will Bring CPAP/BIPAP DOS Yes Currently Taking a Beta Luis Enrique No Can You Climb a Flight of Stairs Without No SOB Hx Chest Pain No Hx Syncope or Dizziness Yes: Syncope w/fall in January 2022 Anti-Coagulant Therapy No Has a Taxonomy Teacher Yes: Pre-op visit 04/10/[address] Whitley Cardiac Testing No Hx Pacemaker/ICD No Pacemaker Rep Required? No Cardiac Clearance Received Yes Comment Cardiac records scanned Diet Type At Home Regular Dysphagia Yes: Liquids and solids Gastrointestinal Symptoms Reflux Urinary Catheter Present No Hx Urinary Self Catheterization No Diabetes No HgbA1C 5.5 Date 04/07/22 Patient No Lactating No Hx Drug Resistant Organism No Presence of External or Internal Medical Yes: BiPAP, subway guard, adina Devices eye IOLs, front tooth flipper Have you had any close contact with No someone diagnosed with COVID-19? Received a COVID vaccine? Yes Received all doses? Yes Marital Status Single Lives With none Current Living Arrangements Mobile home Number of Floors (Floors) One Floor Support System Caregiver Does the Patient Have Assistance After Yes Surgery Patient Discharge Plan Description Other Comment Pt advised possible DC to SNF at DC per Surgeon Feels Safe in Current Environment Yes Been Physically Hurt or Threatened By a No Person in Current Environment Do you have thoughts of harming yourself None or others? Are you currently considering suicide? No Do you have a plan to hurt yourself or No Plan others? Do You Have Any Spiritual Beliefs That No May Affect Your HC Choices? Do You Have Any Cultural Practices That No May Affect Your HC Choices? Comment [place] Who Can We Speak to About Patient's Care Family, friends Identifying Code for Release of Patient Declines to issue Information Health Care Proxy/Next of Kin Alecia (friend) Health Care Proxy Emergency Contact Name Alecia (friend) Emergency Contact Advance Directives? Yes Advance Directives on File No Requested Patient Bring Advanced Yes Directives DOS Power of Public Policy Mediator Yes Power of Public Policy Mediator Name Keesha Montero (friend) Power of Public Policy Mediator PAC Instructions Bring CPAP/BIPAP,Durable medical equipment,Medications to take/avoid,Nasal antibiotic ,No ETOH/petroleum product on skin DOS,NPO,Post-op transportation,Pre-surgical wash,Sensory aids,Sturdy shoes /comfortable clothes,Do not bring valuables and remove jewelry
[2022-04-25] MEDS: SENNOSIDES 8.6 MG TABLET 17.2 MG PO (21:49)
[2022-04-26] VITALS: BP 112/64; PULSE 57; RESP 15; TEMP 35.9; O2SAT 96
--- NOTE | 2022-04-26 01:25 | PC.NURSE ---
Patient is alert and oriented. Visually impaired related to macular degeneration. Difficulty with swallowing pills so meds are administered whole in carrier. Breath sounds CTA but remains on oxygen at 3L/min per NC with sat of 95%. RT has now placed patient on home bipap w/O2 bled in and oxygen decreased to 2L/min. HRR. BP was trending low during day and was 113/54 tonight so amlodipine held. Denies nausea. BT present and is passing flatus but has not had BM since 04/22. Meyers removed yesterday and denies any dysuria; has external catheter placed tonight to allow patient more sleep time. Is able to turn herself in bed. Dressing to back is intact with no new drainage noted. Has chronic numbness in bilateral feet. Wearing bilateral calf SCD's. Complained of 6/10 pain in back radiating down legs earlier and was medicated with oxycodone and is currently asleep. Started on Decadron yesterday and states it has helped in reducing severity of pain. Fall risk score is moderate and bed alarm is activated.
[2022-04-26 04:00] VITALS: BP 127/63; PULSE 66; RESP 16; TEMP 36; O2SAT 94
[2022-04-26] MEDS: PANTOPRAZOLE DR 40 MG TABLET PO (05:54)
[2022-04-26] MEDS: DEXAMETHASONE 4 MG/ML VIAL IV ×2 (05:54→11:23)
[2022-04-26] MEDS: LACTATED RINGERS 1,000 ML 125 ML IV (06:56)
[2022-04-26] MEDS: SODIUM CHLORIDE 0.9% FLUSH 10 ML IV (07:49)
[2022-04-26] MEDS: OXYCODONE IR 5 MG TABLET 10 MG PO ×2 (07:49→12:01)
[2022-04-26 07:51] VITALS: BP 168/76; PULSE 82; RESP 18; TEMP 36.3; O2SAT 97
[2022-04-26] MEDS: TIZANIDINE 4 MG TABLET 2 MG PO (07:59)
[2022-04-26] MEDS: hydroCHLOROthiazide 25 MG TABLET 12.5 MG PO (08:01)
[2022-04-26] MEDS: DULOXETINE 30 MG CAPSULE PO (08:01)
[2022-04-26] MEDS: AMLODIPINE 5 MG TABLET PO (08:01)
[2022-04-26] MEDS: DOCUSATE 100 MG CAPSULE PO (08:01)
[2022-04-26] MEDS: GABAPENTIN 300 MG CAPSULE PO (08:01)
--- NOTE | 2022-04-26 09:16 | PM.DS.1 ---
History of Present Illness History of Present Illness Date Patient Seen: 04/26/22 Time Patient Seen: 09:16 Chief complaint: Translam Intrbody Fus./Laminotomy Narrative: Patient's pain has been moderate to severe. Denies fever/ chills. No nausea or vomiting. No shortness of breath or chest pain. Discharge Providers Provider Date of admission: 04/23/22 09:56 Discharge Date: 04/26/22 Primary care physician: Mary Roberts PA-C Consults: 04/23/22 16:37 Consult to Occupational Therapy Evaluate & Treat Comment: Physician Instructions: Evaluate and treat Consult to Physical Therapy Evaluate & Treat Comment: Physician Instructions: Evaluate and Treat 04/25/22 06:51 Consult to Discharge Planning Routine Comment: Pt is blind and has no help at home, needs SNF Discharge provider: Ranjeet Carpenter PA-C Summary Hospital Course Discharge Diagnosis: 1. 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 Lumbar scoliosis Hospital Course: 1. L3-4, L4-5 Postero-lateral and posterior interbody fusion 2. L3-4, L4-5 interbody cage placement. 3. L3-4, L4-5 decompressive laminectomy with bilateral facetecomies 4. L3-4, L4-5 Posterior segmental instrumentation 5. [place] of bone marrow from iliac crest 6. Utilization of microsurgical technique and operating microscope 7. Utilization of robotic assisted navitation Same procedure as scheduled: Yes Indications: Patient has been having chronic back pain and worsening lumbar radiculopathy. Patient failed multiple conservative management with worsening pain weakness and numbness in her lower extremity.? Patient has been having difficulty performing activity of daily living.? After discussing risks benefits of treatment options, patient elected proceed with surgery. Surgeon: Lizbeth Dallas Project Internship: Krystyna Cerrato Click Yes if Unassisted: No Anesthesia Type: General Operative Notes Closure Type: primary Specimen(s): none sent Prosthetic devices, grafts, tissues, transplants, or devices: Globus CREO MIS screws, Rise cages Applied: catheter Estimated Blood Loss (mL): 100 Blood products transfused: none Patient admitted for the above-mentioned procedure. Patient consented to the same. Patient taken to the operating room underwent L3-L4, L4-L5 posterolateral and posterior interbody fusion April 23, 2022. Patient progressing as expected. Mobilize with physical therapy. Limit bending, twisting, lifting. Patient is legally blind and lives alone she needs long term facility placement. Physical therapy is also recommended long term facility placement. Status at Discharge Cognitive/behavioral status at discharge: at baseline, oriented Functional status at discharge: uses cane/walker Overall status at discharge: patient is progressing back to baseline Exam Vital Signs (past 8 hours): - 04/26/22 04:00 04/26/22 07:51 Temperature 96.8 F L 97.3 F L Pulse Rate 66 82 Respiratory Rate 16 18 Blood Pressure 127/63 168/76 H Pulse Oximetry 94 97 Oxygen Flow Rate 2 2 Oxygen Delivery Method Nasal Cannula,BiPAP Oxygen Flow Rate 2 Narrative Exam Narrative: Pleasant 81-year-old female resting comfortably in bed in no apparent distress. Motor functions intact bilateral lower extremities. Sensation grossly intact to light touch bilateral lower extremities. Const General: cooperative, healthy appearing and comfortable Nutritional Appearance: average body habitus Orientation: oriented x3 Resp Effort & Inspection: normal respiratory effort and able to speak in complete sentences Objective Labs 04/24/22 04:55 PFSH Medical History Arthritis Carotid artery stenosis Cluster headache COVID-19 virus infection (09/2021) Disc degeneration, lumbar Dysphagia Fibromyalgia GERD (gastroesophageal reflux disease) Glaucoma Greater trochanteric bursitis of both hips Ground-level fall History of bronchitis History of esophageal dilatation (11/24/20) History of lupus HTN (hypertension) Legally blind Lumbar stenosis with neurogenic claudication Macular degeneration Memory difficulties Murmur HUSSAIN treated with BiPAP Osteoarthritis Pure hypercholesterolemia Raynaud's phenomenon RLS (restless legs syndrome) Statin intolerance Syncope Systemic lupus erythematosus Thalassemia minor Trigeminal nerve disorder Vision loss of left eye Surgical History Hx of bilateral cataract extraction (~2015) Hx of tonsillectomy (1950) Social History household members: none Smoking Status: Former smoker alcohol intake: current Discharge Assessment & Plan Assessment and Plan Assessment: Patient progressing as expected status post L3-L4, L4-L5 posterolateral and posterior interbody fusion Plan of Treatment: Mobilize with physical therapy, limit bending, twisting, lifting Multimodal pain management Patient is legally blind and lives alone. Physical therapy is recommended long term facility placement. Patient to be discharged to long term facility today. Discharge Plan Discharge Plan Patient Disposition: SNF Discharge orders & Medications Prescriptions: New docusate sodium 100 mg Capsule 100 mg PO BID Qty: 20 0RF hydroxyzine pamoate 25 mg Capsule 25 mg PO Q4HR PRN (Reason: May take for nausea, vomiting, muscle spasms) Qty: 20 0RF oxycodone 5 mg Tablet 10 mg PO Q3HR PRN (Reason: Pain, Severe (7-10)) Qty: 60 0RF Continued latanoprost 0.005 % Drops 1 drp EYE-BOTH BEDTIME tizanidine 2 mg Tablet 2 mg PO Q6H PRN (Reason: Pain) omeprazole 40 mg Capsule,Delayed Release(Dr/Ec) 40 mg PO DAILY acetaminophen 500 mg Tablet 500 mg PO Q4H PRN (Reason: Pain) amlodipine 10 mg Tablet 5 mg PO BID duloxetine 30 mg Capsule,Delayed Release(Dr/Ec) 30 mg PO BID hydrochlorothiazide 12.5 mg Tablet 12.5 mg PO DAILY aspirin 81 mg Capsule 81 mg PO DAILY gabapentin 300 mg Capsule 300 mg PO TID Discontinued oxycodone-acetaminophen 7.5-325 mg Tablet 0.5 tab PO Q4H PRN (Reason: Pain) Follow up/Referrals: Mary Roberts PA-C [Primary Care Provider] - Lizbeth Dallas MD [Physician] - As previously scheduled (Follow up w/ Lina Cerrato PA-C, on 05/08/2022 @ 3:00 pm at [facility] office in [place].) Diet/Activity/Treatments Diet: Diet as Tolerated Activity: No deep bending or twisting at the waist. No lifting more than 10 pounds. Cold/Heat Therapy: Heating pad to back as needed for pain. Skin/Wound/Dressing Care Dressing: May shower; keep dressing as dry as possible. If dressing becomes wet or dirty inside, may remove and replace with clean, dry gauze. No bathing or otherwise soaking incisions. Do not apply any creams, lotions, or ointments to incisions. Special Rehabilitation Services Reason for rehabilitation: Post-operative therapy Rehab type: Physical therapy and Occupational therapy Visit Report/Discharge Packet Instructions: DI for Prescription Opioid Use, DI for Transforaminal Lumbar Interbody Fusion Stand Alone Forms: Patient Portal/API, Surgery Discharge Discharge Data Primary Care Provider: Mary Roberts VTE Deep Vein Thrombosis/Pulmonary Embolism Present on Admission: No
--- NOTE | 2022-04-26 09:29 | CM.DPC ---
Addendum entered by Ena Hawley R.N. 04/26/22 13:15: [facility] can accept patient today, Jammie was able to get auth. Called [facility] and let them know. Friend, Alecia, was updated, will plan on meeting patient at the facility this afternoon. home health clinical supervisor time is confirmed for 1345. Patient is anxious about her blood pressure and dressing changes. Let her know that facility will keep a close eye on her blood pressure and dressings, as [facility] has already discharged her. Completed PASSR, med sheets already completed and signed by Ranjeet Carpenter, PAC. Faxed over to [facility]. Gave nurse facility number for report, Tiffani, dehydration unit operator is updated on time of filler picker, packet was completed. Original Note: DCP Cont: Yanira called, she is patient's friend, wanting some information. Checked in with patient to ask her if this DC Gearman could call her and update her. Patient stated, you can, she is my advocate. Called Yanira, and let her know that a couple of facilities are reviewing. Let her know that she is [employer], the [facility], is not contracted, and [facility] is not. Confirmed that patient is using CPAP. [facility] does not have private room to accomidate, but [facility] at [facility] is looking into it. Flor[place]ma is hoping for [facility] as first choice if possible. Spoke to Obi at [facility], and she is reviewing. She would also need to work on insurance auth. At this time, is between [facility] and [facility]. P: DCP to work on getting patient to a skilled facility, either [facility] or [facility], they will need insurance auth. Ena Hawley RN/Medical Instructor
[2022-04-26] MEDS: BENZOCAINE/MENTHOL 1 LOZ PKT 1 EACH PO (09:30)
[2022-04-26] MEDS: MAG HYDROX/ALUM/SIMETH 30 ML UDC PO (10:06)
--- NOTE | 2022-04-26 11:04 | PT.IPTN ---
Current Diagnoses Acute posthemorrhagic anemia (04/23/22) Legal blindness, as defined in [place] (04/23/22) Spondylolisthesis, lumbar region (04/23/22) Spinal stenosis, lumbar region with neurogenic claudication (04/23/22) Arthrodesis status (04/23/22) Surgery Performed Operation Date: 04/23/22 11:45 Actual Procedures p L3-4, L4-5 TLIF w. posterior instrumentation - Robot(Not Applicable) - Lizbeth Dallas MD Physical Therapy Treatment Note M2 PT-IP Current Condition Start: 04/24/22 08:58 Freq: NEEDED Status: Active Protocol: Document 04/26/22 09:10 SP (Rec: 04/26/22 13:38 SP [id number]) Physical Therapy Current Condition Current Condition Evaluation Date 04/24/22 Treatment Diagnosis L3-4,4-5 fusion. Pain, difficulty walking Onset Date 04/23/22 M3 PT-IP Subjective Start: 04/24/22 08:58 Freq: NEEDED Status: Active Protocol: Document 04/26/22 09:10 SP (Rec: 04/26/22 13:38 SP [id number]) Subjective Physical Therapy Visit Type Type Treatment Note Visit Start Time 09:10 Visit Stop Time 11:04 Total Visit Minutes 62 Notes Split tx: [id number], 1042- 1104. Vital: supine: 85/48 HR 104 SaO2 79- 93% on 2L (finger vs earlobe) Mobility to BSC: 115/58 HR 74 Seated in chair: 104/54 HR 69 end tx. SaO2 w/mobility 88-95% on RA. Nursing DC Supplimental O2. DIRECT SUPPORT SPECIALIST removed periwick, notified nursing if need replacement. Number of DIRECT SUPPORT SPECIALIST Visits 3 Physical Therapy Visit Comments Patient Comments Pt is agreeable to PT session. Patient Goals Hoping to go to SNF to progress strength before going home. Therapy Pain Assessment Pain When Pain Assessed During Mobility Pain Present Pain Present Pain Reported Location Lower Back Intensity 6 Scale Used Numeric (0 - 10) Description Aching Pain Behaviors Facial Grimacing,Guarding Pain Management Techniques Distraction,Modification of Treatment,Re-positioning, Timing of Activity with Medications M4 PT-IP Mobility and Gait Start: 04/24/22 08:58 Freq: NEEDED Status: Active Protocol: Document 04/26/22 09:10 SP (Rec: 04/26/22 13:38 SP [id number]) PT-Bed Mobility Assessment Rolling Type of Rolling Log Rolling,Roll to Left Level of Assist Standby Assistance Supine to Sit Supine to Sit Contact Guard Assistance, Minimal Assistance,Head of Bed Elevated,Bedrails Scooting Scooting to Edge of Bed Standby Assistance,Contact Guard Assistance Scooting Up and Down in Bed Minimal Assistance PT-Transfer Assessment Sit to and From Stand Sit to and from Stand Contact Guard Assistance, Minimal Assistance,1 Person Assistance,Use of Upper Extremities Equipment Transfer Assistive Device Gait Belt,Front Wheeled Walker Orthotic/Prosthetic Devices or Brace: No Transfers Transfer Destination Chair,Bedside Commode Transfer Technique Stand Step Pivot, ambulated w/ FWW Transfer Ability Level of Assist Contact Guard Assistance, Minimal Assistance,1 Person Assistance,Use of Upper Extremities Comments Mobility Comments Pt recalled 2/3 precautions: missed no heavy lifting. She is hypotensive supine nonsymptomic. Instructed BLE exercises: AP, HS AROM. LR L use bed rail, CG/Min A trunk righting to sit/ scoot to EOB heavy BUE WB on bed stop briefs rests for tiring and breath recovery. Improved BP WNL SaO2. Cued for proper hand /positioning of FWW CG/ Min A bed>BSC trunk stability due to impulsive had to urinate quickly, ed had brief donned for safety support, poor control reported. Pt safe vitals and stated needed time for BM, [employer]CH[employer] ADMINISTRATOR took over pt care SBA. When DIRECT SUPPORT SPECIALIST returned, nursing in room and pt in midst transfer to bed. Pt agreeable to assess gait and step mgt for home. STS from chair provided 4WW (AD uses at home)ed and cues for proper brake mgt/ positioning and slower pacing throughout tx. Gait to sink facing w/ 4WW CG/ Min A, cued apply brakes over portable step. Asc/descend 1 portable step R HR and SPC in LUE Mod/Max A x1 cues for patterning and stabilize SPC lead RLE. Pt further distance gait in room x1.5 laps, cues for proximity/slower pacing/ small step pivot w/ no twisting with brake mgt applied CG/ Min A due to trunk sways during turns around bed and occasional scissor stepping. Pt returned to L EOB. CG/Min A stand> sit> Mod A for BLE into bed and cues maintain SL then log roll on back- not maintaining and reported increased pain. Pt had call light and all needs in reach with bed alarmed before left. Pt will require SNF for strength/stability, recommending FWW at this time with pt in agreement. Gait Assessment Gait Gait Assistance Required: Contact Guard Assist,Minimum Assistance,1 Person Assist Distance (Feet) 40 Able to Maintain Weight Bearing Status Yes During Gait Assistive Devices Assistive Device Gait Belt,Front Wheeled Walker ,4 Wheeled Walker Gait Deviations General Gait Pattern Antalgic,Decreased Stride Length,Decreased Feet Clearance,Flexed Trunk,Lateral Trunk Lean,Narrow Based Gait Factors Limiting Gait Function Factors Limiting Gait Function Decreased Activity Tolerance, Decreased Sensation,Decreased Strength,Difficulty Following Directions,Pain,Poor Balance, Poor Safety Awareness, Respiratory Distress Comments Gait Comments see mobility comments Stair Climbing Assessment Evaluation Level of Assist On Stairs Moderate Assistance,Maximal Assistance,1 Person Assistance Devices Stair Climbing Assistive Devices Straight Cane,Right Railing Technique/Endurance Stair Climbing Direction Ascend and Descend Stair Climbing Technique Step to Step Number of Steps Climbed 1 Stair Climbing Set # Repetitions (reps) 1 Comments Stair Climbing Comments Mod/ Max A x1 trunk stability support step up and back down, assimulate enter home, weakness in BLEs/ poor trunk stability. PT-Balance Assessment Sitting Balance and Reactions Static Sitting Balance Ability Good Dynamic Sitting Balance Ability Fair Standing Balance and Reactions Static Standing Balance Ability Good Dynamic Standing Balance Ability Fair Device Used FWW/ 4WW M5 PT-IP Objective Assessments Start: 04/24/22 08:58 Freq: NEEDED Status: Active Protocol: Document 04/24/22 10:26 AMB (Rec: 04/24/22 11:03 AMB [id number]) Orientation Orientation/Cognition Level of Alertness Alert Strength Lower Extremity Strength Assessment Left Impaired Hip 4 Knee 4 Ankle 4 Sensation Assessment Sensation Light Touch Intact M6 PT-IP Treatment Start: 04/24/22 08:58 Freq: NEEDED Status: Active Protocol: Document 04/26/22 09:10 SP (Rec: 04/26/22 13:38 SP [id number]) Physical Therapy Treatment Exercises Exercises Ankle Pumps,Heel Slides Knee ROM Measurement WNL Education Education Provided Precautions,Safety M7 PT-IP Assessment and Plan Start: 04/24/22 08:58 Freq: NEEDED Status: Active Protocol: Document 04/26/22 09:10 SP (Rec: 04/26/22 13:38 SP [id number]) PT Summary Assessment and Plan Potential Rehabilitation Potential Good Status of Condition at Evaluation Evolving Summary Impairments Pain,Strength,Balance,Bed Mobility,Transfers,Gait, Activity Tolerance Progress Towards Goals Slow Progress due to Pain,Slow Progress due to Activity Tolerance Assessment Summary Pt is legally blind added factor to weakness post surgery, requires rest to recovery tiring/breath for improved O2 stats, unsteady on her feet, cues for maintaining precautions of no twisting CG/Min A W FWW/4WW. She requires CG/Min L SL>sit, sit>L SL Mod bed mob, CG/Min A transfers and gait w/ FWW, 1 PF step mgt Mod/Max A unsteady BLEs/Trunk. Recommending SNF for continued strength, balance and endurance gait w/ FWW, unsafe with 4WW at this time. Pt does not have anyone to assist her at home. Will continue to assess progress. Goals Bed Mobility Goal Standby Assistance Transfer Goal Standby Assistance Gait Goal Contact Guard Assistance Gait Distance 100 Frequency of Treatment Frequency Of Treatment Twice a Day Treatment Plan Physical Therapy Treatment Plan Bed Mobility Training,Transfer Training,Gait Training, Therapeutic Exercise, Neuromuscular Re-ed Other Recommendations and Next Treatment Bed mobility, transfers, gait Focus w/ FWW. check O2/BP stats. Precautions Lumbar Precautions Log Roll,No Twisting,Limit Bending,Lifting Restriction of 10 lbs,Gait Belt above Incisional Area Recommendations To Nursing Amount of Assist Needed 1 Person Assist Discharge Recommendations PT Discharge Recommendations SNF Rehab Other Discharge Recommendations No more 24/ assist at home. Transportation Needs at Discharge Wheelchair/Cabulance
[2022-04-26 12:00] VITALS: BP 143/58; PULSE 72; RESP 17; TEMP 36.6; O2SAT 88
[2022-04-26] MEDS: hydrOXYzine pamoate 25 MG CAPSULE PO (12:19)
--- NOTE | 2022-04-26 13:49 | PC.NURSE ---
Day shift: Pt did not have tele of IV access upon leaving. Pt had x2 BMs and voided before d/c. Called [facility] to give receiving nurse report, Renee. Answered all questions and concerns. Pt left unit wearing hospital gown and all belongings such as c-pap machine via facility designee wheelchair @ [phone].
== END 2022-04-26 13:45 | DRG 455 ==
PROVIDERS: Admitting Provider Orthopaedic Surgery Orthopaedic Surgery of the Spine; PCP Physician Assistant; Referring Provider Orthopaedic Surgery Orthopaedic Surgery of the Spine; Visit Provider Orthopaedic Surgery Orthopaedic Surgery of the Spine
PROC: 0SG10AJ Fusion of 2 or more Lumbar Vertebral Joints with Interbody Fusion Device, Posterior Approach, Anterior Column, Open Approach (ICD-10-PCS; principal; 2022-04-23 11:45)
DX: M48.061 Spinal stenosis, lumbar region without neurogenic claudication (principal); M54.16 Radiculopathy, lumbar region; M41.86 Other forms of scoliosis, lumbar region; H54.8 Legal blindness, as defined in USA; K21.9 Gastro-esophageal reflux disease without esophagitis; I10 Essential (primary) hypertension; G47.33 Obstructive sleep apnea (adult) (pediatric); Z20.822 Contact with and (suspected) exposure to COVID-19; Z87.891 Personal history of nicotine dependence
CPT/HCPCS: 36415; 72100; 76000; 85014; 85018; 87635; 97116; 97162; 97165; 97530; C9803; C1713; C1831; C9290; J0171; J0330; J0690; J1100; J1170; J2060; J2405; J2704; J3010; J3410; J3490

== ENCOUNTER → 2023-05-05 09:59 | Outpatient (CLI) | payer OTHER, SELFPAY ==
[2022-04-23 10:06] VITALS: BMI 25.9
--- NOTE | 2023-05-05 | DI.MRI.S_ITS ---
PROCEDURE: MR LUMBAR SPINE WO CON INDICATIONS: Spinal stenosis, lumbar region TECHNIQUE: Noncontrast sagittal T1 spin echo and T2 fast echo, sagittal STIR, and T2 fast spin echo through the lumbar spine. In cases with scoliosis, additional coronal T2 fast spin echo may be performed. COMPARISON: [facility], CR, XR LUMBAR SPINE 2 OR 3 VIEWS, 06/05/2022, 14:42. [facility], MR, MR LUMBAR SPINE WITHOUT CONTRAST, 09/07/2021, 16:05. FINDINGS: Image quality: Excellent. Alignment and Curvature: There is S-shaped scoliotic curvature. Bone Marrow: There has been interval L3 through L5 posterior spinal fixation and discectomy. Chronic moderate compression deformity of L1 vertebral body is again seen. Spinal Cord: Conus medullaris terminates at the L1 level. Visualized cord demonstrates normal signal and size. Paraspinous Soft Tissues: Right adrenal nodule is again seen and similar appearance to prior. Again seen right renal lesion measuring 1.5 centimeters which is isointense to the renal parenchyma, seen to be hyperintense on prior CT scan and favored to represent a hemorrhagic or proteinaceous cyst. T12-L1: Disc desiccation height loss with disc extrusion into the foraminal zones bilaterally. Mild disc bulge. Facet arthropathy. Mild central canal stenosis. Severe right and moderate to severe left neural foraminal stenosis. L1-L2: Disc desiccation height loss. Minimal disc bulge. Facet arthropathy. No central canal stenosis. Moderate to severe right and moderate left neural foraminal stenosis is stable. L2-L3: Disc desiccation height loss. Diffuse disc bulge. Facet arthropathy. Mild central canal stenosis. Mild bilateral neural foraminal stenosis. L3-L4: Postoperative changes. No central canal stenosis. Facet arthropathy. Mild right neural foraminal stenosis. Moderate to severe left neural foraminal stenosis. L4-L5: Postoperative changes. No central canal stenosis. Facet arthropathy. Stable moderate left and mild right neural foraminal stenosis. L5-S1: Disc desiccation. Mild diffuse disc bulge. Facet arthropathy. No central canal stenosis. Stable mild left and moderate right neural foraminal stenosis. IMPRESSION: 1. Multilevel degenerative changes of the lumbar spine status post L3 through L5 posterior spinal fixation. 2. Progression of neural foraminal stenosis at T12-L1 with severe right and moderate to severe left neural foraminal stenosis secondary to extruded disc. 3. Chronic moderate compression deformity of the L1 vertebral body, new compared to prior MRI. 4. Degenerative changes at other levels are not significantly changed compared to prior exam, as described above. Dictated by: Silas Dennis M.D. on 05/06/2023 at 9:41 Approved by: Silas Dennis M.D. on 05/06/2023 at 9:54
== END ==
LOC: MRI 10:00
PROVIDERS: PCP Physician Assistant; Referring Provider Orthopaedic Surgery Orthopaedic Surgery of the Spine; Visit Provider Orthopaedic Surgery Orthopaedic Surgery of the Spine
DX: M48.062 Spinal stenosis, lumbar region with neurogenic claudication (principal); M48.05 Spinal stenosis, thoracolumbar region; M48.07 Spinal stenosis, lumbosacral region; M47.816 Spondylosis without myelopathy or radiculopathy, lumbar region; M47.817 Spondylosis without myelopathy or radiculopathy, lumbosacral region; M51.25 Other intervertebral disc displacement, thoracolumbar region; M51.37 Other intervertebral disc degeneration, lumbosacral region; M51.36 Other intervertebral disc degeneration, lumbar region; M43.8X6 Other specified deforming dorsopathies, lumbar region
CPT/HCPCS: 72148